=== PATIENT | female | born 1985 | race Caucasian/White ===

== ENCOUNTER 2017-06-12 18:43 | Emergency (ER) | payer OTHER ==
[~2017-06-12] VITALS: Ht 167.6 cm; Wt 72.0 kg
[2017-06-12] MEDS ORDERED: bcp PO (19:38)
[2017-06-12] MEDS ORDERED: LITH300C PO (19:38)
[2017-06-12] MEDS ORDERED: AMBI10TA PO (19:38)
[2017-06-12] MEDS ORDERED: ATIV1TAB10 PO (19:38)
[2017-06-12] MEDS ORDERED: LATU40TA PO (19:38)
[2017-06-12 19:39] VITALS: BP 155/100
[2017-06-12] MEDS ORDERED: LORazepam 1 MG TAB PO STA (20:08)
== END 2017-06-12 20:19 | disposition home or self-care (01) ==
LOC: M ED 18:43
DX: F41.1 Generalized anxiety disorder (principal); F43.10 Post-traumatic stress disorder, unspecified; Z79.899 Other long term (current) drug therapy

== ENCOUNTER 2017-10-20 08:46 | Emergency (ER) | payer OTHER ==
[~2017-10-20] VITALS: Ht 167.6 cm; Wt 75.1 kg
[~2017-10-20 08:46] MED LIST: AMBI10TA PO; ATIV1TAB10 PO; LATU40TA PO; LITH300C PO; bcp PO
[2017-10-20] MEDS ORDERED: KETOROLAC 30 MG/ML VIAL (J1885) IM ONE (09:30)
[2017-10-20] MEDS ORDERED: NAPR500T3 PO (11:15)
[2017-10-20 11:23] VITALS: BP 126/74
[2017-10-20] MEDS ORDERED: CYCL5TAB PO (11:27)
--- NOTE | 2017-10-20 12:07 | REP ---
REASON FOR EXAM: Radicular symptoms. COMPARISON: None. FINDINGS: Five views of the lumbosacral spine show no acute fracture, dislocation or subluxation. The intervertebral disc spaces are symmetric and well maintained. There is no spondylolysis or spondylolisthesis. The pedicles are intact bilaterally and there is no destructive osseous lesion. IMPRESSION: Unremarkable lumbosacral spine series. Signed by Keshawn Leon DO 10/20/2017 11:17 A
== END 2017-10-20 11:30 | disposition home or self-care (01) ==
LOC: M ED 08:46
DX: M54.16 Radiculopathy, lumbar region (principal); M79.605 Pain in left leg; F41.9 Anxiety disorder, unspecified; F33.9 Major depressive disorder, recurrent, unspecified; F43.10 Post-traumatic stress disorder, unspecified; Z79.899 Other long term (current) drug therapy
CPT/HCPCS: 72110; 81025; 96372; 99284; J1885

== ENCOUNTER 2019-02-17 14:36 | Emergency (ER) | payer OTHER ==
[~2019-02-17] VITALS: Ht 167.6 cm; Wt 71.4 kg
[~2019-02-17 14:36] MED LIST changes: +CYCL5TAB PO; +NAPR-885 PO
[2019-02-17 17:23] LABS: INFLUENZA A AMPLIFICATION NEGATIVE (NEGATIVE); INFLUENZA B AMPLIFICATION NEGATIVE (NEGATIVE)
[2019-02-17] MEDS ORDERED: ONDANSETRON 4MG/2ML VIAL (J2405) IV ONE (18:15)
[2019-02-17] MEDS ORDERED: NS 1,000 ML IV ONE ×2 (18:15)
[2019-02-17 19:19] LABS: BASO # 0.1 10^3/uL (0.0-0.2); BASO % 0.7 % (0.0-1.0); EOS # 0.1 10^3/uL (0.0-0.50); EOS % 1.1 % (0.0-3.0); HEMATOCRIT 42.7 % (36.0-47.0); HEMOGLOBIN 14.7 g/dl (12.0-15.5); LYMPH % 33.5 % (24.0-44.0); MEAN CORPUSCULAR HEMOGLOBIN 28.3 pg (27.0-33.0); MEAN CORPUSCULAR HGB CONC 34.4 g/dl (32.0-36.5); MEAN CORPUSCULAR VOLUME 82.3 fl (80.0-96.0); MONO # 0.8 10^3/uL (0.0-0.8); MONO % 9.1 % (0.0-5.0); NEUTROPHILS # 4.9 10^3/uL (1.8-7.7); NEUTROPHILS % 54.9 % (36.0-66.0); PLATELET COUNT, AUTOMATED 367 10^3/uL (150-450); RED BLOOD COUNT 5.19 10^6/uL (4.00-5.40)
[2019-02-17 20:53] LABS: ALBUMIN 3.4 GM/DL (3.2-5.2); ALT/SGPT 25 U/L (12-78); AMYLASE 39 U/L (25-115); BILIRUBIN,TOTAL 0.3 MG/DL (0.2-1.0); BLOOD UREA NITROGEN 6 MG/DL (7-18); CALCIUM LEVEL 8.1 MG/DL (8.5-10.1); CARBON DIOXIDE LEVEL 21 MEQ/L (21-32); CHLORIDE LEVEL 110 MEQ/L (98-107); CREATININE FOR GFR 0.66 MG/DL (0.55-1.30); GLOMERULAR FILTRATION RATE > 60.0 (>60); GLUCOSE, FASTING 87 MG/DL (70-100); HCG, SERUM QUANTITATIVE < 1.0 MIU/ML; LIPASE 66 U/L (73-393); POTASSIUM SERUM 3.6 MEQ/L (3.5-5.1); SODIUM LEVEL 141 MEQ/L (136-145); TOTAL PROTEIN 6.5 GM/DL (6.4-8.2)
[2019-02-17] MEDS ORDERED: diphenhydrAMINE INJ 50MG/ML VIAL (J1200) IV ONE (21:00)
[2019-02-17] MEDS ORDERED: KETOROLAC 30 MG/ML VIAL (J1885) IV ONE (21:00)
[2019-02-17 21:07] VITALS: BP 160/98
[2019-02-17] MEDS ORDERED: ONDA4TAB6 PO (21:19)
== END 2019-02-17 21:44 | disposition home or self-care (01) ==
LOC: M ED 14:36
DX: R11.2 Nausea with vomiting, unspecified (principal); R51 Headache; F32.9 Major depressive disorder, single episode, unspecified; F41.9 Anxiety disorder, unspecified; F43.10 Post-traumatic stress disorder, unspecified; Z87.891 Personal history of nicotine dependence; Z79.899 Other long term (current) drug therapy; Z79.3 Long term (current) use of hormonal contraceptives
CPT/HCPCS: 36415; 80053; 82150; 83690; 84702; 85025; 87631; 96361; 96374; 96375; 99284; J1200; J1885; J2405

== ENCOUNTER 2020-04-29 10:59 | Emergency (ER) | payer OTHER, SELFPAY ==
[~2020-04-29] VITALS: Ht 167.6 cm; Wt 78.0 kg
[2020-04-29 10:59] VITALS: BP 126/89
[~2020-04-29 10:59] MED LIST changes: +ONDA4TAB6 PO
[2020-04-29] MEDS ORDERED: CYCL1TAB (11:11)
[2020-04-29] MEDS ORDERED: ALPR1TAB3 (11:11)
[2020-04-29 11:36] LABS: BASO # 0.1 10^3/uL (0.0-0.2); BASO % 0.4 % (0.0-1.0); EOS # 0.2 10^3/uL (0.0-0.5); EOS % 1.6 % (0.0-3.0); HEMATOCRIT 38.6 % (36.0-47.0); LYMPH # 3.6 10^3/uL (1.5-5.0); LYMPH % 23.9 % (24.0-44.0); MEAN CORPUSCULAR HEMOGLOBIN 29.2 pg (27.0-33.0); MEAN CORPUSCULAR HGB CONC 33.7 g/dl (32.0-36.5); MEAN CORPUSCULAR VOLUME 86.7 fl (80.0-96.0); MONO # 0.8 10^3/uL (0.0-0.8); MONO % 5.4 % (0.0-5.0); NEUTROPHILS # 10.1 10^3/uL (1.5-8.5); NEUTROPHILS % 68.2 % (36.0-66.0); PLATELET COUNT, AUTOMATED 304 10^3/uL (150-450); RED BLOOD COUNT 4.45 10^6/uL (4.00-5.40); WHITE BLOOD COUNT 14.9 10^3/uL (4.0-10.0)
[2020-04-29 12:03] LABS: ALBUMIN 3.8 GM/DL (3.2-5.2); ALT/SGPT 24 U/L (12-78); BILIRUBIN,DIRECT < 0.1 MG/DL (0.0-0.2); BILIRUBIN,TOTAL 0.3 MG/DL (0.2-1.0); LIPASE 180 U/L (73-393); TOTAL PROTEIN 6.4 GM/DL (6.4-8.2)
== END 2020-04-29 12:59 | disposition left against medical advice (07) ==
LOC: M ED 10:59
DX: R10.9 Unspecified abdominal pain (principal); R14.0 Abdominal distension (gaseous); D72.829 Elevated white blood cell count, unspecified

== ENCOUNTER 2020-05-02 07:23 | Emergency (ER) | payer OTHER ==
[~2020-05-02] VITALS: Ht 167.6 cm; Wt 77.3 kg
[~2020-05-02 07:23] MED LIST changes: +ALPR1TAB3 PO; +CYCL1TAB
[2020-05-02 07:59] LABS: BASO # 0.1 10^3/uL (0.0-0.2); BASO % 0.7 % (0.0-1.0); EOS # 0.3 10^3/uL (0.0-0.5); EOS % 2.7 % (0.0-3.0); HEMATOCRIT 39.3 % (36.0-47.0); HEMOGLOBIN 13.5 g/dl (12.0-15.5); LYMPH # 3.2 10^3/uL (1.5-5.0); LYMPH % 31.8 % (24.0-44.0); MEAN CORPUSCULAR HEMOGLOBIN 29.4 pg (27.0-33.0); MEAN CORPUSCULAR HGB CONC 34.4 g/dl (32.0-36.5); MEAN CORPUSCULAR VOLUME 85.6 fl (80.0-96.0); MONO # 0.6 10^3/uL (0.0-0.8); MONO % 5.8 % (0.0-5.0); NEUTROPHILS # 5.7 10^3/uL (1.5-8.5); NEUTROPHILS % 57.7 % (36.0-66.0); PLATELET COUNT, AUTOMATED 286 10^3/uL (150-450); RED BLOOD COUNT 4.59 10^6/uL (4.00-5.40); WHITE BLOOD COUNT 9.9 10^3/uL (4.0-10.0)
[2020-05-02] MEDS ORDERED: PANTOPRAZOLE 40MG VIAL (C9113 PER 1) IV ONE (08:00)
[2020-05-02] MEDS ORDERED: NS 1,000 ML IV ONE (08:00)
[2020-05-02 08:24] LABS: HCG, SERUM QUALITATIVE NEGATIVE (NEGATIVE)
[2020-05-02 08:43] LABS: ALBUMIN 3.5 GM/DL (3.2-5.2); ALT/SGPT 44 U/L (12-78); BILIRUBIN,DIRECT < 0.1 MG/DL (0.0-0.2); BILIRUBIN,TOTAL 0.3 MG/DL (0.2-1.0); BLOOD UREA NITROGEN 11 MG/DL (7-18); CALCIUM LEVEL 8.7 MG/DL (8.5-10.1); CARBON DIOXIDE LEVEL 23 MEQ/L (21-32); CHLORIDE LEVEL 111 MEQ/L (98-107); CREATININE FOR GFR 0.85 MG/DL (0.55-1.30); GLOMERULAR FILTRATION RATE > 60.0 (>60); GLUCOSE, FASTING 91 MG/DL (70-100); LIPASE 53 U/L (73-393); POTASSIUM SERUM 4.5 MEQ/L (3.5-5.1); SODIUM LEVEL 143 MEQ/L (136-145); TOTAL PROTEIN 6.4 GM/DL (6.4-8.2)
[2020-05-02] MEDS ORDERED: GI COCKTAIL 50ML BTL(HYOSCYAMINE/MAALOX/LIDOCAINE VISCOUS)(1:3:1) PO ONE (09:00)
[2020-05-02 11:20] VITALS: BP 141/94
--- NOTE | 2020-05-02 11:27 | REP ---
Right upper quadrant sonography: History: However quadrant and epigastric pain. Comparison study: No comparison study. Findings: Scanning through the right upper quadrant of the abdomen demonstrates a normal sized, thin-walled gallbladder containing multiple shadowing calculi consistent with cholelithiasis. Common bile duct is normal measuring 0.3 cm in greatest diameter. There is a subtle hyperechoic area in the right lobe of the liver consistent with hemangioma 2.2 cm in diameter. No other focal liver lesion is appreciated. Liver size is normal. No pancreatic abnormality is observed. No right renal abnormality is seen. There is no evidence of ascites. The right kidney measures 10.8 x 4.2 x 4.2 cm. Impression: Cholelithiasis. 2.2 cm hemangioma of the liver. Otherwise negative right upper quadrant sonography. Electronically Signed by Didier Denis MD 05/02/2020 11:19 A
== END 2020-05-02 12:16 | disposition home or self-care (01) ==
LOC: M ED 07:23
DX: K80.50 Calculus of bile duct without cholangitis or cholecystitis without obstruction (principal); F41.9 Anxiety disorder, unspecified; F31.9 Bipolar disorder, unspecified; Z79.899 Other long term (current) drug therapy; Z79.3 Long term (current) use of hormonal contraceptives
CPT/HCPCS: 76705; 80048; 80076; 83690; 84703; 85025; 96374; 99284; C9113

== ENCOUNTER 2020-05-20 22:01 | Emergency (ER) | payer OTHER ==
[~2020-05-20] VITALS: Ht 167.6 cm; Wt 78.1 kg
[2020-05-20 23:00] LABS: BASO # 0.1 10^3/uL (0.0-0.2); BASO % 0.6 % (0.0-1.0); EOS # 0.2 10^3/uL (0.0-0.5); EOS % 2.2 % (0.0-3.0); HEMATOCRIT 40.1 % (36.0-47.0); HEMOGLOBIN 13.5 g/dl (12.0-15.5); LYMPH # 3.5 10^3/uL (1.5-5.0); LYMPH % 31.5 % (24.0-44.0); MEAN CORPUSCULAR HEMOGLOBIN 28.9 pg (27.0-33.0); MEAN CORPUSCULAR HGB CONC 33.7 g/dl (32.0-36.5); MEAN CORPUSCULAR VOLUME 85.9 fl (80.0-96.0); MONO # 0.8 10^3/uL (0.0-0.8); MONO % 7.4 % (0.0-5.0); NEUTROPHILS # 6.4 10^3/uL (1.5-8.5); NEUTROPHILS % 57.2 % (36.0-66.0); PLATELET COUNT, AUTOMATED 319 10^3/uL (150-450); RED BLOOD COUNT 4.67 10^6/uL (4.00-5.40); WHITE BLOOD COUNT 11.1 10^3/uL (4.0-10.0)
[2020-05-20] MEDS ORDERED: MORPHINE 4 MG/ML 1ML VIAL/SYRINGE (J2270) IV ONE (23:30)
[2020-05-20] MEDS ORDERED: NS 1,000 ML IV ONE (23:30)
[2020-05-20] MEDS ORDERED: ONDANSETRON 4MG/2ML VIAL IV ONE (23:30)
[2020-05-20 23:34] LABS: ALBUMIN 3.5 GM/DL (3.2-5.2); ALT/SGPT 18 U/L (12-78); BILIRUBIN,DIRECT < 0.1 MG/DL (0.0-0.2); BILIRUBIN,TOTAL 0.1 MG/DL (0.2-1.0); LIPASE 161 U/L (73-393); TOTAL PROTEIN 6.6 GM/DL (6.4-8.2)
[2020-05-20 23:43] LABS: ETHYL ALCOHOL (ETHANOL) < 0.003 % (0.000-0.010)
[2020-05-21] MEDS: GASTROGRAFIN SOLUTION 30ML PO SCH ×2 (00:11→00:42)
[2020-05-21 01:10] LABS: AMPHETAMINES LEVEL URINE NEGATIVE (NEGATIVE); BARBITURATES URINE NEGATIVE (NEGATIVE); BENZODIAZEPINES URINE POSITIVE (NEGATIVE); CANNABINOIDS URINE NEGATIVE (NEGATIVE); COCAINE METABOLITE URINE NEGATIVE (NEGATIVE); METHADONE URINE NEGATIVE (NEGATIVE); OPIATES URINE NEGATIVE (NEGATIVE); PHENCYCLIDINE URINE NEGATIVE (NEGATIVE)
[2020-05-21] MEDS ORDERED: ISOVUE-370 76% 100ML VIAL As Ordered ONE (01:29)
--- NOTE | 2020-05-21 02:20 | REPVR ---
PROCEDURE INFORMATION: Exam: CT Abdomen And Pelvis With Contrast Exam date and time: 05/21/2020 1:46 AM Age: 34 years old Clinical indication: Abdominal pain; Other: Upper abd pain, vomiting blood TECHNIQUE: Imaging protocol: Computed tomography of the abdomen and pelvis with intravenous contrast. Radiation optimization: All CT scans at this facility use at least one of these dose optimization techniques: automated exposure control; mA and/or kV adjustment per patient size (includes targeted exams where dose is matched to clinical indication); or iterative reconstruction. Contrast material: ISOVUE 370; Contrast volume: 100 ml; Contrast route: INTRAVENOUS (IV); Other contrast: Oral, GASTROGRAPHIN, 10ML GASTRO TO 290 ML WATER X 2; COMPARISON: GALLBLADDER US 05/02/2020 10:39 AM FINDINGS: Lungs: Mild bilateral dependent atelectasis. Liver: Mild hepatomegaly and steatosis. Gallbladder and bile ducts: Cholelithiasis. No specific evidence of acute cholecystitis. Pancreas: Normal. No ductal dilation. Spleen: Normal. No splenomegaly. Adrenals: Normal. No mass. Kidneys and ureters: Normal. No hydronephrosis. Stomach and bowel: Unremarkable. No obstruction. No mucosal thickening. Appendix: No evidence of appendicitis. Intraperitoneal space: Unremarkable. No free air. No significant fluid collection. Vasculature: Unremarkable. No abdominal aortic aneurysm. Lymph nodes: Scattered nonspecific subcentimeter mesenteric lymph nodes.. No enlarged lymph nodes. Bladder: Distended urinary bladder. Reproductive: Unremarkable as visualized. Bones/joints: Unremarkable. No acute fracture. Soft tissues: Unremarkable. IMPRESSION: Cholelithiasis. No specific evidence of acute cholecystitis. Mild hepatomegaly and steatosis. No bowel obstruction. Normal appendix. Electronically signed by: Benja Croft On 05/21/2020 02:20:04 AM
[2020-05-21 02:30] VITALS: BP 138/92
[2020-05-21] MEDS ORDERED: ONDA4TAB6 PO (02:30)
--- NOTE | 2020-05-21 06:44 | ED PDOC ---
Post-Departure Follow-Up dr torres faxed formal report of ct abd/p for fu Aguila Duque MD May 21, 2020 06:44
== END 2020-05-21 02:40 | disposition home or self-care (01) ==
LOC: M ED 22:01
DX: R10.13 Epigastric pain (principal); K80.20 Calculus of gallbladder without cholecystitis without obstruction; R11.2 Nausea with vomiting, unspecified; F99 Mental disorder, not otherwise specified; F17.200 Nicotine dependence, unspecified, uncomplicated; Z79.899 Other long term (current) drug therapy; Z79.3 Long term (current) use of hormonal contraceptives
CPT/HCPCS: 74177; 80047; 80076; 80307; 81001; 83690; 84702; 85025; 96361; 96374; 96375; 99284; G0480; J2270; J2405; Q9963; Q9967

== ENCOUNTER 2022-08-08 09:18 | Emergency (ER) | payer OTHER ==
[~2022-08-08] VITALS: Ht 167.6 cm; Wt 56.8 kg
[~2022-08-08 09:18] MED LIST changes: -LATU40TA PO; +LATU40TA2 PO
[2022-08-08] MEDS ORDERED: OLAN1TAB16 (09:25)
[2022-08-08] MEDS ORDERED: LORazepam 1 MG TAB PO STA (10:45)
[2022-08-08 10:53] LABS: HEMATOCRIT 43.2 % (36.0-47.0); HEMOGLOBIN 14.5 g/dl (12.0-15.5); MEAN CORPUSCULAR HEMOGLOBIN 29.3 pg (27.0-33.0); MEAN CORPUSCULAR HGB CONC 33.6 g/dl (32.0-36.5); MEAN CORPUSCULAR VOLUME 87.3 fl (80.0-96.0); PLATELET COUNT, AUTOMATED 250 10^3/uL (150-450); RED BLOOD COUNT 4.95 10^6/uL (4.00-5.40); WHITE BLOOD COUNT 6.5 10^3/uL (4.0-10.0)
[2022-08-08 11:21] LABS: HCG, SERUM QUALITATIVE NEGATIVE (NEGATIVE)
[2022-08-08 11:27] LABS: CK-MB VALUE MASS < 1.0 NG/ML (<3.6); CPK CREATINE PHOSPHOKINASE 56 U/L (26-192); MB/CK RELATIVE INDEX 1.79 (< OR =4)
[2022-08-08 11:28] LABS: RSV AMPLIFICATION NEGATIVE (NEGATIVE)
[2022-08-08 11:35] LABS: AMPHETAMINES LEVEL URINE NEGATIVE (NEGATIVE); BARBITURATES URINE NEGATIVE (NEGATIVE); BENZODIAZEPINES URINE POSITIVE (NEGATIVE); CANNABINOIDS URINE POSITIVE (NEGATIVE); COCAINE METABOLITE URINE NEGATIVE (NEGATIVE); METHADONE URINE NEGATIVE (NEGATIVE); OPIATES URINE NEGATIVE (NEGATIVE); PHENCYCLIDINE URINE NEGATIVE (NEGATIVE)
[2022-08-08 11:35] LABS: ACETAMINOPHEN LEVEL < 2.0 UG/ML (10.0-30.0); ALBUMIN 3.8 GM/DL (3.2-5.2); ALT/SGPT 17 U/L (12-78); BILIRUBIN,DIRECT < 0.1 MG/DL (0.0-0.2); BILIRUBIN,TOTAL 0.2 MG/DL (0.2-1.0); BLOOD UREA NITROGEN 13 MG/DL (7-18); CALCIUM LEVEL 9.1 MG/DL (8.5-10.1); CARBON DIOXIDE LEVEL 26 MEQ/L (21-32); CHLORIDE LEVEL 110 MEQ/L (98-107); CREATININE FOR GFR 0.71 MG/DL (0.55-1.30); ETHYL ALCOHOL (ETHANOL) 0.006 % (0.000-0.010); GLOMERULAR FILTRATION RATE > 60.0 (>60); GLUCOSE, FASTING 109 MG/DL (70-100); POTASSIUM SERUM 4.9 MEQ/L (3.5-5.1); SALICYLATE LEVEL < 1.7 MG/DL (5.0-30.0); SODIUM LEVEL 141 MEQ/L (136-145); THYROID STIMULATING HORMONE 0.611 uIU/ML (0.358-3.740); TOTAL PROTEIN 6.4 GM/DL (6.4-8.2)
[2022-08-08 12:19] LABS: LITHIUM LEVEL < 0.20 MEQ/L (0.60-1.20)
[2022-08-08] MEDS ORDERED: LITH300T2 PO (12:38)
[2022-08-08] MEDS ORDERED: DEPA500T2 PO (13:06)
[2022-08-08 15:30] LABS: VALPROIC ACID (DEPAKOTE) < 3.0 UG/ML (50.0-100.0)
[2022-08-08] MEDS ORDERED: zolPIDEM TARTRATE 5 MG TAB PO PRN (18:45)
[2022-08-08] MEDS ORDERED: ALPRAZolam 0.5 MG TAB PO PRN (18:45)
[2022-08-08] MEDS ORDERED: ONDANSETRON 4MG TAB PO PRN (18:45)
[2022-08-08] MEDS ORDERED: DIVALPROEX 500MG *ER* TAB PO ONE (21:00)
[2022-08-08] MEDS ORDERED: OLANZapine 5 MG TAB PO ONE (21:00)
[2022-08-08] MEDS ORDERED: LITHIUM CARBONATE 300 MG CAP PO ONE (21:00)
[2022-08-08] MEDS ORDERED: ONDA4TAB6 PO (23:30)
[2022-08-08] MEDS ORDERED: ALPR1TAB3 PO (23:30)
[2022-08-08] MEDS ORDERED: VALT1TAB PO (23:30)
[2022-08-08] MEDS ORDERED: ZYPR10TA PO (23:30)
[2022-08-08] MEDS ORDERED: JOLETAB PO (23:30)
[2022-08-08] MEDS ORDERED: HOME MED LIST COMPLETE! XX SCH (23:35)
[2022-08-09] MEDS ORDERED: ALPRAZolam 0.5 MG TAB PO SCH (07:50)
[2022-08-09 17:59] VITALS: BP 132/76
[2022-08-09] MEDS ORDERED: DIVALPROEX 500MG *ER* TAB PO SCH (21:00)
[2022-08-09] MEDS ORDERED: LITHIUM CARBONATE 300 MG CAP PO SCH (21:00)
[2022-08-09] MEDS ORDERED: zolPIDEM TARTRATE 5 MG TAB PO SCH (21:00)
[2022-08-09] MEDS ORDERED: OLANZapine 10 MG TAB PO SCH (21:00)
== END 2022-08-09 18:16 | disposition short-term general hospital (02) ==
LOC: M ED 09:18
DX: R45.851 Suicidal ideations (principal); F41.1 Generalized anxiety disorder; F43.10 Post-traumatic stress disorder, unspecified; F31.9 Bipolar disorder, unspecified; Z79.899 Other long term (current) drug therapy; F17.200 Nicotine dependence, unspecified, uncomplicated